=== PATIENT | female | born 1970 | race Caucasian/White ===

== ENCOUNTER → 2020-05-03 10:57 | Outpatient (BNVA) | payer SELFPAY | PROVIDERS: Visit Provider Nurse Practitioner Family | DX: R10.9 Unspecified abdominal pain (principal); G89.29 Other chronic pain; R51 Headache; K92.1 Melena; R19.7 Diarrhea, unspecified; R11.2 Nausea with vomiting, unspecified | CPT/HCPCS: 80053; 81000; 85025 ==

== ENCOUNTER → 2020-05-05 10:55 | Outpatient (BNVA) | payer SELFPAY | PROVIDERS: Visit Provider Nurse Practitioner Family | DX: R19.7 Diarrhea, unspecified (principal); K92.1 Melena; R10.9 Unspecified abdominal pain; G89.29 Other chronic pain | CPT/HCPCS: 82270; 87338; 87506 ==